=== PATIENT | female | born 1975 | race Caucasian/White ===

== ENCOUNTER → 2020-01-02 | Outpatient (CLI) | payer OTHER ==
[~2020-01-02] MED LIST: AMITRIPTYLINE H25 M1 PO; CALCIUM-500 5001 CTB PO; CELEXA40 MG PO; CEPHALEXIN500 M1; CHANTIX 1MG1 MG PO; EMBEDA PO; FENTANYL 25 MCG TD; FETZIMA80; FLEXERIL 1010 MG/TAB PO; HCTZ 25MG TAB25 MG PO; INDERAL40 MG PO; LASIX 40MG TABL40 MG PO; LORTAB 5/500 501 TAB PO; LUNESTA2 MG PO; MELATONIN5 M1 PO; MINIPRESS2 MG; MOVANTIK25 MG PO; MS CONTIN 115 MG/TAB PO; MULTI-FLAVOR CH1 CTB PO; NEURONTIN400 MG/CAP PO; NORCO 325 MG-7.1 TAB PO; PERCOCET 325 MG1 TAB PO; REMERON 15M15 MG/TA1 PO; STOOL SOFTENER100 M2; VALIUM 5MG T5 MG/TAB PO; VITAMIN A10k; WELLBUTRIN SR100 M1 PO; ZANAFLEX 4MG TAB4 MG PO
== END ==
LOC: MC.RAD 10:51
DX: Z12.31 Encounter for screening mammogram for malignant neoplasm of breast (principal)

== ENCOUNTER → 2020-02-10 | Outpatient (CLI) | payer OTHER ==
[~2020-02-10] VITALS: Ht 163.8 cm; Wt 98.0 kg
[~2020-02-10] MED LIST changes: +ATARAX 10MG10 MG/TAB PO; +NEURONTIN300 MG/CAP PO; -NEURONTIN400 MG/CAP PO; +NORCO 325 MG-101 TAB PO; +ROBAXIN 50500 MG/TAB PO; +ZYRTEC 10MG10 MG PO
[2020-02-10 13:18] VITALS: BP 124/86; PULSE 92
== END ==
LOC: LIGHT 13:01
DX: E66.01 Morbid (severe) obesity due to excess calories (principal); Z68.36 Body mass index [BMI] 36.0-36.9, adult
CPT/HCPCS: G0463

== ENCOUNTER 2020-07-10 12:06 | Observation (INO) | payer OTHER ==
[~2020-07-10] VITALS: Ht 162.6 cm; Wt 102.6 kg
[2020-07-10 13:04] LABS: BASO # 0.1 (0.0-0.2); BASO % 0.6 % (0.0-2.0); EOS # 0.1 (0.0-0.7); EOS % 0.9 % (0-4.0); GRAN # 6.4 (1.4-6.5); GRAN % 76.1 % (42.2-75.2); LYMPH # 1.6 (1.2-3.4); LYMPH % 18.9 % (20.0-51.0); MEAN CELL VOLUME 56 fl (80.0-100.0); MEAN CORPUSCULAR HGB CONC 30 g/dl (33.0-37.0); MEAN PLATELET VOLUME 8.8 fl (7.4-10.4); MONO # 0.3 (0.1-0.6); MONO % 3.3 % (1.7-9.3); PLATELET COUNT 453 K/mm3 (130-400); RED BLOOD COUNT 4.77 M/mm3 (4.10-5.30); REDCELL DISTRIBUTION WIDTH-CV 19.4 % (11.5-14.5)
[2020-07-10 13:05] LABS: HEMATOCRIT 26.9 % (37.0-47.0); HEMOGLOBIN 8.1 g/dl (12.5-16.0); MEAN CORPUSCULAR HEMOGLOBIN 17 pg (27.0-31.0)
[2020-07-10 13:14] LABS: INR 1.1 (0.8-3.0); PROTHROMBIN TIME 11.9 SECONDS (9.7-12.8)
[2020-07-10 13:17] LABS: PARTIAL THROMBOPLASTIN TIME 28.7 SECONDS (26.0-37.0)
[2020-07-10 13:19] LABS: ALBUMIN 4.6 gm/dL (3.5-5.0); BILIRUBIN,TOTAL 0.7 mg/dL (0.0-1.0); CALCIUM 9.2 mg/dL (8.4-10.2); CREATININE, serum 0.51 (0.52-1.25); POTASSIUM 3.6 mmol/L (3.4-5.0); TOTAL PROTEIN 8.4 gm/dL (6.4-8.2)
[2020-07-10] MEDS ORDERED: FASTIN30 MG PO (16:23)
[2020-07-10 20:30] VITALS: BP 135/77; PULSE 90; TEMP 98.3
[2020-07-10 23:41] VITALS: BP 131/78; PULSE 90; TEMP 97.8
[2020-07-11 04:30] VITALS: BP 128/74; PULSE 88; TEMP 98
[2020-07-11 07:39] LABS: BASO % 0.5 % (0.0-2.0); EOS # 0.2 (0.0-0.7); EOS % 3.4 % (0-4.0); GRAN # 3.4 (1.4-6.5); GRAN % 60.8 % (42.2-75.2); LYMPH # 1.6 (1.2-3.4); LYMPH % 28.7 % (20.0-51.0); MEAN CELL VOLUME 58 fl (80.0-100.0); MEAN CORPUSCULAR HGB CONC 30 g/dl (33.0-37.0); MEAN PLATELET VOLUME 8.7 fl (7.4-10.4); MONO # 0.4 (0.1-0.6); MONO % 6.2 % (1.7-9.3); PLATELET COUNT 413 K/mm3 (130-400); RED BLOOD COUNT 4.33 M/mm3 (4.10-5.30); REDCELL DISTRIBUTION WIDTH-CV 18.9 % (11.5-14.5)
[2020-07-11 07:40] LABS: HEMOGLOBIN 7.5 g/dl (12.5-16.0); MEAN CORPUSCULAR HEMOGLOBIN 17 pg (27.0-31.0)
[2020-07-11 07:47] VITALS: BP 142/87; PULSE 100; TEMP 97.9
[2020-07-11 07:56] LABS: CALCIUM 8.7 mg/dL (8.4-10.2); CREATININE, serum 0.5 (0.52-1.25); MAGNESIUM 2.2 mg/dL (1.6-2.3); POTASSIUM 3.7 mmol/L (3.4-5.0)
--- NOTE | 2020-07-11 08:13 | NUR ---
Patient prepped for endo. Ns to gravity. She brushed her teeth. new linens. independent with hygiene. Chronic pain reported. She has been NPO. Reports nausea. Protonix per orders. Will await her return
[2020-07-11 09:15] VITALS: BP 149/82; PULSE 87; TEMP 97.8
[2020-07-11 09:19] LABS: IRON,SERUM 22 ug/dL (35-150)
[2020-07-11 09:28] LABS: TOTAL IRON BINDING CAPACITY 449 ug/dL (265-497)
[2020-07-11 09:45] VITALS: BP 157/87; PULSE 82
--- NOTE | 2020-07-11 11:17 | NUR ---
SW met with patient to conduct intake evaluation. Patient lives at home in [place] with her Roc (P# [phone]). Patient thinks that she not does have DPOA, is not currently interested in paperwork, but she was given instruction to acquire paperwork outside of hospital. Patient's PCP is Dr. Charlton, and she uses [facility] in [place] for medications. Patient denies concerns paying for medications. Patient plans to return home with , who will provide transportation. Patient denies questions or concerns at this time. Patient will discharge home today 07/11.
[2020-07-11 11:31] VITALS: BP 128/77; PULSE 86; TEMP 97.9
--- NOTE | 2020-07-11 11:49 | NUR ---
Patient ready for discharge. She called her spouse to pick her up. Lunch ordered, she tolerated clear liquid tray, no nausea. Iv dc. We reviewed all dischagre paperwork. Home med list reviewed with Last dose taken. Papient aware she will need to make her follow up appt on monday, per orders. Patient request a pain pill in preperation for discharge, dose given per her home regiement.
--- NOTE | 2020-07-11 13:24 | NUR ---
Patient tolerated her lunch tray. Patient here to take her home, denies questions or concerns. Patient wheeled out with all belongings. She did request a note stating she did not have to wear a mask due to anemia, but was not approved by physican.
== END 2020-07-11 13:25 | disposition home or self-care (01) ==
LOC: COL.ER 12:06 → MEDICAL 13:34
PROVIDERS: Emergency Medicine; Internal Medicine Gastroenterology; ADMIT Internal Medicine
DX: R19.5 Other fecal abnormalities (principal); K31.89 Other diseases of stomach and duodenum; D56.9 Thalassemia, unspecified; R11.2 Nausea with vomiting, unspecified; R10.13 Epigastric pain; G89.29 Other chronic pain; M79.7 Fibromyalgia; Z88.0 Allergy status to penicillin; Z88.2 Allergy status to sulfonamides; Z88.6 Allergy status to analgesic agent; Z88.5 Allergy status to narcotic agent; Z88.8 Allergy status to other drugs, medicaments and biological substances; Z20.822 Contact with and (suspected) exposure to COVID-19; Z98.84 Bariatric surgery status; Z79.899 Other long term (current) drug therapy; Z79.891 Long term (current) use of opiate analgesic; Z87.891 Personal history of nicotine dependence
CPT/HCPCS: C9113; G0378; J2270; J2405; J2704; J7030

== ENCOUNTER 2020-07-15 13:03 | Day surgery (SDC) | payer OTHER ==
[~2020-07-15] VITALS: Ht 162.6 cm; Wt 101.1 kg
[~2020-07-15 13:03] MED LIST changes: +FASTIN30 MG PO
[2020-07-15] MEDS ORDERED: PROTONIX 40MG T40 MG PO (13:13)
[2020-07-15] MEDS ORDERED: IRON 27 MG PO (13:14)
[2020-07-15 13:55] VITALS: BP 141/87; PULSE 104; TEMP 98.6
[2020-07-15 14:40] VITALS: BP 126/82; PULSE 92; TEMP 97.6
--- NOTE | 2020-07-15 14:40 | NUR ---
PATIENT RETURNED TO [facility]. PATEINT GOES TO RESTROOM IMMEDIATELY BEFORE VITALS. PATIENT HAS BM. FLUSHES TWICE 1440 PATIENT AMBULATED BACK TO [facility]. MONITORS APPLIED. VSS ON ROOM AIR. PATIENT DOES C/O OF ABD DISCOMFORT. ENCOURAGED PATIENT TO RELAX. 1445 VSS ON ROOM AIR. PATIENT GIVEN JUICE AND COFFEE. AND PATIEHT GIVEN MUFFIN TO EAT. PATIENT STATES SHE IS HUNGRY.
[2020-07-15 14:45] VITALS: BP 124/51; PULSE 95
--- NOTE | 2020-07-15 15:00 | NUR ---
VSS ON ROOM AIR. PATIENT DRINKING JUICE AND COFFEE. PATIENT DOES NOT EXPRESS DISCOMFORT. 1505 DR GREENE IN ROOM AND SPEAKS WITH PATIENT.
[2020-07-15 15:15] VITALS: BP 123/73; PULSE 104
--- NOTE | 2020-07-15 15:15 | NUR ---
VSS ON ROOM AIR. PATIENT GETTING DRESSED. PATIENT STATES THAT HER SON IS READY TO PICK HER UP. DISCHARGE INSTRUCTIONS GIVEN VERBAL AND DISCHARGE PACKET PROVIDED. QUESTIONS ANSWERED AND PATIENT VOICED UNDERSTANDING. IV SITE DC'D WITH CATHETER TIP INTACT. PRESSURE AND BANDAGE APPLIED.
--- NOTE | 2020-07-15 15:30 | NUR ---
PATIENT DISCHARGED PER WHEEL CHAIR ACCOMPANIED BY AMB RN TO [facility].
== END 2020-07-15 15:30 | disposition home or self-care (01) ==
LOC: SDCO 13:03
DX: K92.2 Gastrointestinal hemorrhage, unspecified (principal); R19.5 Other fecal abnormalities; D64.9 Anemia, unspecified
CPT/HCPCS: J2704; J3010; J7120

== ENCOUNTER 2020-07-16 08:40 | Day surgery (SDC) | payer OTHER ==
[~2020-07-16] VITALS: Ht 162.6 cm; Wt 100.1 kg
[~2020-07-16 08:40] MED LIST changes: +IRON 27 MG PO; +PROTONIX 40MG T40 MG PO
[2020-07-16 09:41] VITALS: BP 144/90; PULSE 95; TEMP 98.1
[2020-07-16 11:12] VITALS: BP 127/82; PULSE 81; TEMP 97.2
--- NOTE | 2020-07-16 11:12 | NUR ---
Pt returns to [facility] via cart. Pt ambulates from cart to recliner with RN assist. Monitors on and alarms set. Call light within reach. Report received from NERIS Henriquez. Pt requesting muffin, crackers, and juice. Pt has no complaints of pain or nausea.
[2020-07-16 11:15] VITALS: BP 117/71; PULSE 80
[2020-07-16 11:30] VITALS: BP 120/74; PULSE 90
--- NOTE | 2020-07-16 11:30 | NUR ---
Pt taking food and drink well. No complications voiced.
[2020-07-16 11:45] VITALS: BP 116/66; PULSE 87
[2020-07-16 12:00] VITALS: BP 118/70; PULSE 87
[2020-07-16 12:24] LABS: HEMATOCRIT 28.1 % (37.0-47.0); HEMOGLOBIN 8.4 g/dl (12.5-16.0)
--- NOTE | 2020-07-16 12:40 | NUR ---
Discharge instructions given to pt. All questions answered to her satisfaction. Handed to her are a thank you card, discharge instructions, diagnosis information, and a discharge med sheet.
--- NOTE | 2020-07-16 12:45 | NUR ---
Pt transferred out of hospital via wheelchair and NERIS Ortiz assist, to private vehicle driven by family.
== END 2020-07-16 12:45 | disposition home or self-care (01) ==
LOC: SDCO 08:40
PROVIDERS: Internal Medicine Gastroenterology
DX: K59.00 Constipation, unspecified (principal); R19.5 Other fecal abnormalities; D50.9 Iron deficiency anemia, unspecified; K57.30 Diverticulosis of large intestine without perforation or abscess without bleeding; K62.89 Other specified diseases of anus and rectum; K64.8 Other hemorrhoids; M79.7 Fibromyalgia; M19.90 Unspecified osteoarthritis, unspecified site; M54.9 Dorsalgia, unspecified; G62.9 Polyneuropathy, unspecified; D56.9 Thalassemia, unspecified; G89.29 Other chronic pain; F32.9 Major depressive disorder, single episode, unspecified; Z88.0 Allergy status to penicillin; Z88.2 Allergy status to sulfonamides; Z98.84 Bariatric surgery status; Z90.89 Acquired absence of other organs; Z88.8 Allergy status to other drugs, medicaments and biological substances; Z88.5 Allergy status to narcotic agent; Z88.6 Allergy status to analgesic agent; Z90.710 Acquired absence of both cervix and uterus; Z87.891 Personal history of nicotine dependence
CPT/HCPCS: J2704; J3010; J7030

== ENCOUNTER 2020-10-24 17:14 | Emergency (ER) | payer OTHER ==
[~2020-10-24] VITALS: Ht 167.6 cm; Wt 97.7 kg
[2020-10-24] MEDS ORDERED: NORFLEX 10100 MG/TAB PO (18:12)
[2020-10-24 18:29] VITALS: BP 133/83; PULSE 78; TEMP 97.8
== END 2020-10-24 18:32 | disposition home or self-care (01) ==
LOC: COL.ER 17:14
DX: G89.29 Other chronic pain (principal); M54.2 Cervicalgia; M79.7 Fibromyalgia; F41.8 Other specified anxiety disorders; Z87.891 Personal history of nicotine dependence; Z98.1 Arthrodesis status; Z88.5 Allergy status to narcotic agent; Z88.6 Allergy status to analgesic agent; Z79.891 Long term (current) use of opiate analgesic; Z79.899 Other long term (current) drug therapy
CPT/HCPCS: J1885; J2360